=== PATIENT | female | born 1985 | race Caucasian/White ===

== ENCOUNTER 2023-05-04 15:55 | Emergency (ER) | payer SELFPAY ==
[~2023-05-04] VITALS: Ht 175.3 cm; Wt 80.3 kg
[2023-05-04] MEDS ORDERED: KETOROLAC TROMETHAMINE 30 MG/ML VIAL IM STA (16:15)
[2023-05-04] MEDS ORDERED: DEXAMETHASONE 4 MG TAB PO STA (16:15)
[2023-05-04] MEDS ORDERED: MUCINEX DM ER1 EAC1 PO (16:16)
[2023-05-04] MEDS ORDERED: SINGULAIR10 MG PO (16:18)
[2023-05-04 18:27] VITALS: O2SAT 94
== END 2023-05-04 18:27 | disposition home or self-care (01) ==
LOC: ER 16:03
DX: R50.9 Fever, unspecified (principal); J06.9 Acute upper respiratory infection, unspecified; R05.9 Cough, unspecified; Z11.52 Encounter for screening for COVID-19
CPT/HCPCS: 87400; 99283; J1885; J8540; U0002